=== PATIENT | male | born 1960 | race Caucasian/White ===

== ENCOUNTER 2017-01-31 15:02 | Outpatient (CLI) | payer OTHER ==
--- NOTE | 2017-01-31 17:38 | DIAGNOSTIC IMAGING REPORT ---
PROCEDURE: US ABDOMEN ULTRASOUND-COMPLETE INDICATION: CIRRHOSIS; ALCOHOLIC TECHNIQUE: Dyson scale and color Doppler sonographic images of the abdomen were obtained. COMPARISON: Abdominal ultrasound 09/02/2015. FINDINGS: Enlarged liver measures 20.3 cm with scalloping of the contour and heterogeneous echo structure. No ascites. Normal hepatopetal flow. Spleen measures 22 x 8.6 cm (previously 21.7 x 7.7 cm). No ascites. 1.2 cm mobile gallstone. There is no wall thickening. CBD measures 3.3 mm and there is a negative Constantino's sign. Visualized pancreas is unremarkable. Aorta and IVC are patent. Normal kidneys. Right kidney measures 11.3 cm and left kidney 12.4 cm. IMPRESSION: 1. Cirrhosis with stable splenomegaly indicative of portal hypertension but normal hepatopetal flow in the portal vein. No ascites 2. Cholelithiasis
== END 2017-01-31 23:00 ==
LOC: US SRH 15:02
DX: K74.69 Other cirrhosis of liver (principal); R16.1 Splenomegaly, not elsewhere classified; K76.6 Portal hypertension